=== PATIENT | male | born 1995 | race Hispanic/Latino ===

== ENCOUNTER 2019-01-17 22:23 | Emergency (ER) | payer SELFPAY ==
[2019-01-17] MEDS ORDERED: Acetaminophen/Codeine 30-300mg Tablet ONE (22:46)
[2019-01-17] MEDS ORDERED: HYDROcodone/Acetaminophen 5/325 mg Tablet ONE (22:47)
[2019-01-17] MEDS ORDERED: Albuterol Sulfate 2.5 mg/0.5 ml Neb ONE (22:48)
[2019-01-17] MEDS ORDERED: Sodium Chloride For Inhalation 0.9% 3 ML NEB ONE (22:48)
--- NOTE | 2019-01-17 23:33 | RAD ---
Radiograph chest 2 views: 01/17/2019 HISTORY: 23-year-old male with dyspnea FINDINGS: No pneumothorax or pleural effusion. Lungs are clear. No cardiomegaly. IMPRESSION: Negative.
== END 2019-01-17 23:31 | disposition home or self-care (01) ==
LOC: SCSER 22:23
DX: J45.901 Unspecified asthma with (acute) exacerbation (principal); H66.91 Otitis media, unspecified, right ear; F90.9 Attention-deficit hyperactivity disorder, unspecified type
CPT/HCPCS: 71046; 94640; J7611

== ENCOUNTER 2020-02-20 10:07 | Emergency (ER) | payer OTHER, SELFPAY ==
[2020-02-20 18:47] LABS: SARS-CoV-2 MS2 Positive; SARS-CoV-2 N Gene Negative; SARS-CoV-2 S Gene Negative; SARS-CoV-2 orf1ab Negative
== END 2020-02-20 11:00 | disposition home or self-care (01) ==
LOC: ERS 10:07
DX: Z20.828 Contact with and (suspected) exposure to other viral communicable diseases (principal); F90.9 Attention-deficit hyperactivity disorder, unspecified type; J45.909 Unspecified asthma, uncomplicated; F17.210 Nicotine dependence, cigarettes, uncomplicated
CPT/HCPCS: 87635; 99283; U0003